=== PATIENT | male | born 1980 | race Caucasian/White ===

== ENCOUNTER 2016-11-22 23:03 | Emergency (ER) | payer BC ==
[~2016-11-22] VITALS: Ht 180.3 cm; Wt 109.1 kg
[2016-11-22 23:11] VITALS: TEMP 36.5; Ht 180.3 cm; Wt 109.1 kg
--- NOTE | 2016-11-22 23:43 | EMERGENCY ROOM VISIT NOTE ---
History Report prepared by Carmita: Petra Byers Under the Supervision of: Dr. Kirti Bunn D.O. First contact with patient: 23:19 Chief Complaint: BITE Stated Complaint: POSSIBLE SNAKE BITE TO RT ARM History of Present Illness The patient is a 36 year old male who presents to the Emergency Room with complaints of two small wounds on the right arm occurring about 4 hours ago. The patient was mowing grass around trees when he felt something bite him. He is unsure if it was a snake bite or the type of snake it was. As per family, snakes had previously been noticed in the area. The patient initially had some swelling in the area which resolved about half an hour later. He denies any erythema. He currently does not have any pain. He denies chest pain, abdominal pain, nausea, vomiting, or any other complaints. He does not have any medical problems. Source of History: patient Onset: about 4 hours ago Position: arm (right) Symptom Intensity: no pain Quality: other (wound) Associated Symptoms: No chest pain, No nausea, No vomiting, No abdominal pain Review of Systems See HPI for pertinent positives & negatives. A total of 10 systems reviewed and were otherwise negative. Past Medical & Surgical Surgical Problems: (1) History of ear surgery Family History Patient reports no known family medical history. Social History Smoking Status: Former Smoker Alcohol Use: occasionally Marital Status: single Housing Status: lives alone Occupation Status: employed Current/Historical Medications No Active Prescriptions or Reported Meds Allergies Coded Allergies: No Known Allergies (Unverified , 11/22/16) Physical Exam Vital Signs Date Time Temp Pulse Resp B/P (MAP) Pulse Ox O2 Delivery O2 Flow Rate FiO2 11/22/16 23:53 65 18 152/87 98 11/22/16 23:11 36.5 67 18 154/104 98 Room Air Physical Exam HEENT: Head - normocephalic and atraumatic Pupils are equal, round, and reactive to light. Extraocular eye muscles are intact, and sclera are anicteric. Nose - moist nasal mucosa without discharge. Mouth - moist buccal mucosa. Oropharynx is nonerythematous and there is no tonsillar exudate or edema noted. Neck: Supple; no cervical lymphadenopathy. Heart: Regular rate and rhythm. There is a normal S1 and S2 with no murmurs, clicks, or gallops appreciated. Lungs: Clear to auscultation bilaterally with no wheezes, rales, or rhonchi. Abdomen: Soft, completely nontender, nondistended, with good bowel sounds. There are no palpable pulsatile masses or hepatosplenomegaly. There is no guarding, rigidity, or rebound noted. Extremities: No evidence of cyanosis, clubbing, or edema. There are easily palpable peripheral pulses. Right upper extremity triceps area superficial abrasion and puncture wound in close proximity to each other with surrounding erythema. There is no axillary lymphadenopathy. Skin: warm and dry with good turgor and no rashes. Medical Decision & Procedures ED Course 2319: Past medical records reviewed. The patient was evaluated in room C06. A complete history and physical exam was performed. 2340: The wound was cleansed with sterile water and dressed with antibiotic ointment and a bandage. Medical Decision The patient presents to the Emergency Room with complaints of two small wounds on right arm. Differential diagnosis includes but is not limited to abrasion from a branch, insect bite, or snake bite. I attest that I have personally reviewed the patient's current medication list but none was found. Blood Pressure Screening: Patient was found to have a slightly elevated blood pressure due to circumstances. I do not believe that the patient requires hypertension monitoring. The patient has 2 small wounds to the back of the right arm. One appears like a puncture wound, the other appears like an abrasion and they're close proximity to each other. No snake was ever identified. The patient had been cutting grass on a riding mower amongst some trees. The injury occurred approximate 4 hours ago. There are no signs of surrounding erythema, edema, or pain to the arm. Impression Primary Impression: Abrasion of right upper arm Scribe Attestation The scribe's documentation has been prepared under my direction and personally reviewed by me in its entirety. I confirm that the note above accurately reflects all work, treatment, procedures, and medical decision making performed by me. Departure Information Dispostion Home / Self-Care Prescriptions No Active Prescriptions or Reported Meds Referrals No Doctor, Assigned (PCP) Forms HOME CARE DOCUMENTATION FORM, IMPORTANT VISIT INFORMATION Patient Instructions My [facility] Additional Instructions Rest Watch the right arm closely for signs of infection Keep the wound clean and covered with antibiotic ointmnet
[2016-11-22 23:53] VITALS: BP 152/87; PULSE 65; O2SAT 98
== END 2016-11-22 23:54 | disposition home or self-care (01) ==
LOC: C.EDB 23:04 → C.EDC 23:54
DX: S40.811A Abrasion of right upper arm, initial encounter (principal); S41.131A Puncture wound without foreign body of right upper arm, initial encounter; X58.XXXA Exposure to other specified factors, initial encounter; Y93.H9 Activity, other involving exterior property and land maintenance, building and construction; Z87.891 Personal history of nicotine dependence